=== PATIENT | female | born 2000 | race Hispanic/Latino ===

== ENCOUNTER 2022-12-28 09:21 | Emergency (ER) | payer OTHER ==
--- NOTE | 2022-12-28 09:46 | ER ---
[facility] Name: Melody Palacios Age: 22 yrs Sex: Female : 2000 Arrival Date: 12/28/2022 Time: 09:21 Bed IW3 Private MD: Diagnosis: Cough Presentation: 12/28 09:40 Chief complaint: Patient states: she has had a intermittent cough for approx one month. ap3 Coronavirus screen: At this time, the client does not indicate any symptoms associated with coronavirus-19. Ebola Screen: No symptoms or risks identified at this time. Initial Sepsis Screen: Does the patient meet any 2 criteria? No. Patient's initial sepsis screen is negative. Does the patient have a suspected source of infection? No. Patient's initial sepsis screen is negative. Risk Assessment: Do you want to hurt yourself or someone else? Patient reports no desire to harm self or others. Onset of symptoms was November 2022. 09:40 Method Of Arrival: Ambulatory ap3 09:40 Acuity: NEAL 4 ap3 Triage Assessment: 09:42 General: Appears in no apparent distress. Behavior is calm, cooperative, appropriate ap3 for age. Pain: Denies pain. Neuro: Level of Consciousness is awake, alert, obeys commands, Oriented to person, place, time, situation. Cardiovascular: Patient's skin is warm and dry. Respiratory: Reports cough that is intermittent for approx one month. 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 - Social history:: Smoking status: Patient denies any tobacco usage or history of. Screenin:43 [facility] ED Fall Risk Assessment (Adult) History of falling in the last 3 months, ap3 including since admission No falls in past 3 months (0 pts). Abuse screen: Denies threats or abuse. Nutritional screening: No deficits noted. Tuberculosis screening: No symptoms or risk factors identified. Vital Signs: 09:40 BP 136 / 66; Pulse 65; Resp 18; Temp 98; Pulse Ox 99% ; Weight 72.57 kg; ap3 ED Course: 09:23 Patient arrived in ED. am2 09:26 [facility] 09:26 Tuan Mcgill MD is Attending Physician. [facility] 09:42 Triage completed. ap3 09:43 Arm band placed on right wrist. ap3 09:43 Patient has correct armband on for positive identification. Adult w/ patient. ap3 09:45 Marni Rice, RN is Primary Nurse. ap3 09:50 No provider procedures requiring assistance completed. Patient did not have IV access ap3 during this emergency room visit. Administered Medications: No medications were administered Medication: 09:43 VIS not applicable for this client. ap3 Outcome: :45 Discharge ordered by . [facility] 09:50 Discharged to home ambulatory. ap3 09:50 Condition: good 09:50 Discharge instructions given to patient, Instructed on discharge instructions, follow up and referral plans. Demonstrated understanding of instructions, follow-up care, medications, Prescriptions given X 1. 09:50 Patient left the ED. ap3 Signatures: Pérez Medeiros PA PA jmm Moreno, Amanda am2 Marni Rice, RN RN ap3
--- NOTE | 2022-12-28 09:46 | EDPHYS ---
Physician Documentation [facility] Name: Melody Palacios Age: 22 yrs Sex: Female : 2000 Arrival Date: 12/28/2022 Time: 09:21 Bed IW3 Private MD: ED Physician Tuan Mcgill HPI: 12/28 09:44 This 22 yrs old Female presents to ER via Ambulatory with complaints of Cough. jmm 09:44 The patient or guardian reports cough. Onset: The symptoms/episode began/occurred jmm gradually, 1 week(s) ago. Modifying factors: The symptoms are alleviated by nothing, the symptoms are aggravated by nothing. 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 - Social history:: Smoking status: Patient denies any tobacco usage or history of. ROS: 09:44 Constitutional: Negative for fever, chills, and weight loss, Cardiovascular: Negative jmm for chest pain, palpitations, and edema. 09:44 ENT: Positive for sore throat. 09:44 Respiratory: Positive for cough. 09:44 All other systems are negative. Exam: 09:44 Constitutional: This is a well developed, well nourished patient who is awake, alert, jmm and in no acute distress. Head/Face: atraumatic. Eyes: EOMI, no conjunctival erythema appreciated 09:44 Chest/axilla: Normal chest wall appearance and motion. Cardiovascular: Regular rate and rhythm. No edema appreciated Respiratory: Normal respirations, no respiratory distress appreciated Abdomen/GI: Non distended Back: Normal ROM Skin: General appearance color normal MS/ Extremity: Moves all extremities, no obvious deformities appreciated, no edema noted to the lower extremities Neuro: Awake and alert Psych: Behavior is normal, Mood is normal, Patient is cooperative and pleasant 09:44 ENT: Posterior pharynx: erythema, that is moderate. Vital Signs: 09:40 BP 136 / 66; Pulse 65; Resp 18; Temp 98; Pulse Ox 99% ; Weight 72.57 kg; ap3 MDM: 09:44 Patient medically screened. jmm 09:45 Differential Diagnosis: Upper Respiratory Infection Pharyngitis. Data reviewed: [facility] signs, nurses notes. Counseling: I had a detailed discussion with the patient and/or guardian regarding: the historical points, exam findings, and any diagnostic results supporting the discharge/admit diagnosis, the need for outpatient follow up, to return to the emergency department if symptoms worsen or persist or if there are any questions or concerns that arise at home. 12/28 09:44 Order name: Strep [facility] Administered Medications: No medications were administered Disposition Summary: 12/28/22 09:45 Discharge Ordered Location: Home [facility] Condition: Stable [facility] Diagnosis - Cough [facility] Followup: [facility] - With: Private Physician - When: 2 - 3 days - Reason: Recheck today's complaints, Continuance of care, Re-evaluation by your physician Discharge Instructions: - Discharge Summary Sheet [facility] Forms: - Work release form [facility] - Family Work Release [facility] - Medication Reconciliation Form [facility] - Thank You Letter [facility] - Antibiotic Education [facility] - Prescription Opioid Use [facility] Prescriptions: - Prednisone 20 mg Oral Tablet - take 3 tablets by ORAL route once daily for 5 days; 15 tablet; Refills: 0, [facility] Product Selection Permitted - Zithromax Z-Chandler 250 mg Oral Tablet - take 1 tablet by ORAL route as directed for 5 days Day 1 - take two (2) tablets [facility] one time. Day 2, 3, 4 , 5 take one (1) tablet once daily.; 6 tablet; Refills: 0, Product Selection Permitted Signatures: Dispatcher [employer] Pérez Baires PA PA jmm Prokisch, Amanda, RN RN ap3
[2022-12-28 09:55] VITALS: BP 136/66; TEMP 98; O2SAT 99
== END 2022-12-28 09:50 | disposition home or self-care (01) ==
LOC: ER 09:21
DX: R05.9 Cough, unspecified (principal); Z88.6 Allergy status to analgesic agent
CPT/HCPCS: 87070; 87081; 99283